=== PATIENT | female | born 1985 | race Hispanic/Latino ===

== ENCOUNTER 2016-11-26 15:45 | Emergency (ER) | payer OTHER ==
[~2016-11-26] VITALS: Ht 167.6 cm; Wt 66.0 kg
[2016-11-26] MEDS ORDERED: CEPHALEXIN500 MG PO (17:07)
[2016-11-26 17:20] VITALS: BP 110/69
== END 2016-11-26 17:31 | disposition home or self-care (01) | DRG 605 ==
LOC: ED 15:45
PROC: 0HQGXZZ Repair Left Hand Skin, External Approach (ICD-10-PCS; principal; 2016-11-26)
DX: S61.217A Laceration without foreign body of left little finger without damage to nail, initial encounter (principal); W26.0XXA Contact with knife, initial encounter; Y93.G1 Activity, food preparation and clean up; Y92.000 Kitchen of unspecified non-institutional (private) residence as the place of occurrence of the external cause